=== PATIENT | female | born 1995 | race Caucasian/White ===

== ENCOUNTER 2017-12-03 21:41 | Emergency (ER) | payer BC, OTHER ==
[2017-12-04] MEDS: HYDROCODONE/APAP (10/325) TAB PO (01:13)
== END 2017-12-04 01:55 | disposition home or self-care (01) ==
LOC: FTE 21:41
DX: S39.012A Strain of muscle, fascia and tendon of lower back, initial encounter (principal); T22.131A Burn of first degree of right upper arm, initial encounter; S63.501A Unspecified sprain of right wrist, initial encounter; S80.01XA Contusion of right knee, initial encounter; S80.11XA Contusion of right lower leg, initial encounter; T21.12XA Burn of first degree of abdominal wall, initial encounter; V49.40XA Driver injured in collision with unspecified motor vehicles in traffic accident, initial encounter; X19.XXXA Contact with other heat and hot substances, initial encounter
CPT/HCPCS: 99284